=== PATIENT | male | born 1995 | race Caucasian/White ===

== ENCOUNTER 2019-08-31 07:21 | Emergency (ER) | payer BC, OTHER ==
[2019-08-31 07:40] VITALS: BP 136/76
--- NOTE | 2019-08-31 08:07 | UC ---
General HPI - HPI Summary HPI Summary: States he noticed left armpit pain about a week ago. A few days later he noticed a rash on the back of his arm near his armpit. States the rash is itchy and he has been putting hydrocortisone on it. No fevers. No weight loss or night sweats. Mild chronic cough, smokes 1/2 ppd. Denies any trauma. States he has been under stress lately with moving into a new house and getting laid off from his job. Meds: reviewed - History of Current Complaint Chief Complaint: UCGeneralIllness Stated Complaint: LT ARMPIT PAIN Time Seen by Provider: 08/31/19 07:53 Pain Intensity: 5 - Allergy/Home Medications Allergies/Adverse Reactions: Allergies Allergy/AdvReac Type Severity Reaction Status Date / Time No Known Allergies Allergy Verified 08/31/19 07:32 PMH/Surg Hx/FS Hx/Imm Hx Previously Healthy: Yes - Surgical History Surgical History: Yes Surgery Procedure, Year, and Place: neck mole removed as child. dental extractions, 08/18/19 - Family History Known Family History: Positive: None Family History: no cardio-vascular issues in patients family - Social History Alcohol Use: Occasionally Substance Use Type: None Smoking Status (MU): Heavy Every Day Tobacco Smoker Type: Cigarettes Amount Used/How Often: 8-10 CIGS DAILY Length of Time of Smoking/Using Tobacco: 3yrs Have You Smoked in the Last Year: Yes Household Exposure Type: Cigarettes Review of Systems All Other Systems Reviewed And Are Negative: Yes Constitutional: Positive: Negative Physical Exam Triage Information Reviewed: Yes Appearance: Well-Appearing Vital Signs: Initial Vital Signs Temp 98.5 F 08/31/19 07:33 Pulse 76 08/31/19 07:33 Resp 16 08/31/19 07:33 BP 136/76 08/31/19 07:33 Pulse Ox 100 08/31/19 07:33 Vital Signs Reviewed: Yes Eyes: Positive: Conjunctiva Clear ENT: Positive: Normal ENT inspection Neck: Positive: Supple, Nontender Skin: Positive: Other - vesicular rash with erythema along dermatomal pattern on upper left torso. No drainage. No masses or lesions in armpit region. Could not apprecaite significant adenopathy Course/Dx - Course Course Of Treatment: Rash with armpit pain Rash consistent with shingles Plan Discussed discontinuing the hydrocortisone Start Valtrex as prescribed Would start with Ibuprofen as needed for pain Keep area covered until area scabs over If symptoms persist or worsen, recommend follow up with PCP or return to urgent care - Diagnoses Provider Diagnosis: Shingles Discharge ED - Sign-Out/Discharge Documenting (check all that apply): Patient Departure All imaging exams completed and their final reports reviewed: No Studies - Discharge Plan Condition: Good Disposition: HOME Prescriptions: ValACYclovir (*) [Valtrex 1 GM(*)] 1 gm PO Q8HR #21 tab Patient Education Materials: Beatriz (ED) Referrals: No Primary Care Phys,NOPCP [Primary Care Provider] - Additional Instructions: Start Valtrex as prescribed Would start with Ibuprofen as needed for pain Keep area covered until area scabs over If symptoms persist or worsen, recommend follow up with PCP or return to urgent care - Billing Disposition and Condition Condition: GOOD Disposition: Home
== END 2019-08-31 08:20 | disposition home or self-care (01) ==
LOC: UCCORT 07:21
DX: B02.9 Zoster without complications (principal); F17.210 Nicotine dependence, cigarettes, uncomplicated
CPT/HCPCS: 99202; G0463